=== PATIENT | male | born 1995 | race Two or more races ===

== ENCOUNTER 2023-07-25 11:47 | Emergency (ER) | payer MEDICAID ==
[~2023-07-25] VITALS: Ht 172.7 cm; Wt 83.1 kg
[2023-07-25 12:02] VITALS: BP 138/79; TEMP 98.4
[2023-07-25 14:10] VITALS: PULSE 82; RESP 18; O2SAT 97
== END 2023-07-25 14:13 | disposition home or self-care (01) ==
LOC: ER 11:47
DX: I10 Essential (primary) hypertension (principal); C76.42 Malignant neoplasm of left upper limb